=== PATIENT | female | born 1980 | race Caucasian/White ===

== ENCOUNTER 2022-01-26 11:54 | Emergency (ER) | payer BC, SELFPAY ==
--- NOTE | ~2022-01-26 | CT_ITS ---
EXAMINATION: CT cervical spine wo con DATE: 01/26/2022 13:15 INDICATION: Neck pain, head injury TECHNIQUE: Computed tomography (CT) of the cervical spine was performed without intravenous contrast. The dose-length product (DLP) was 602.92 mGy-cm. Automated exposure control and iterative reconstruc tion technique were employed. COMPARISON: None FINDINGS: There is straightening of the cervical spine which can be positional or due to muscular spa sm. There is no acute fracture, dislocation, or subluxation. The vertebral body heights, alignment, a nd intervertebral disc spaces are normal. The paravertebral soft tissues are unremarkable. The odonto id is intact. There is fibrous in the posterior C1 ring. IMPRESSION: 1. No acute osseous abnormality. Reviewed, dictated and finalized at location A.
--- NOTE | ~2022-01-26 | CT_ITS ---
EXAMINATION: CT brain wo con INDICATION: Head injury COMPARISON: None TECHNIQUE: Standard unenhanced head CT. The dose-length product (DLP) was 605.33 mGy-cm. The mA was a djusted according to patient size. Iterative reconstruction technique was employed. FINDINGS: There is no intracranial hemorrhage, acute infarction, or abnormal mass lesion. The ventric les are normal. There is no abnormal mass effect or midline shift. There is mild encephalomalacia in the left frontal lobe. Ventricular shunt enters through the left parietal lobe and ends with its tip in the right lateral ventricle. The basal cisterns are patent. The orbits are normal. The paranasal s inuses, mastoids and calvarium are normal. IMPRESSION: 1. No acute intracranial abnormality. Reviewed, dictated and finalized at location A.
[2022-01-26 12:20] VITALS: BP 144/83; PULSE 83; RESP 20; TEMP 36.6; O2SAT 98
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
[2022-01-26 14:32] VITALS: BP 149/91; PULSE 91; RESP 20; TEMP 36.6; O2SAT 97
== END 2022-01-26 14:34 | disposition home or self-care (01) ==
PROVIDERS: Emergency Provider Emergency Medicine; PCP Family Medicine
DX: S10.93XA Contusion of unspecified part of neck, initial encounter (principal); T74.91XA Unspecified adult maltreatment, confirmed, initial encounter; Y04.0XXA Assault by unarmed brawl or fight, initial encounter
CPT/HCPCS: 70450; 72125; 99284

== ENCOUNTER 2025-04-05 14:51 | Outpatient (RCR) | payer OTHER, SELFPAY ==
--- NOTE | 2025-04-05 16:58 | OPREHPOC ---
Outpatient Therapy Plan of Care This is a Multidisciplinary Plan of Care that may contain components documented by all disciplines (PT, OT, and ST.) PT Problem 1 PT Problem #1 Knowledge Deficit PT Goal 1 Goal / Goal Update The patient will be independent in a home exercise program. Target Visit 4 PT Problem 2 PT Problem #2 Impaired Balance PT Goal 1 Goal / Goal Update The patient will demonstrate 53/56 on the Osman Balance Scale indicating a low fall risk. Target Visit 8 PT Problem 3 PT Problem #3 Impaired Strength PT Goal 1 Goal / Goal Update The patient will demonstrate 5/5 right ankle strength. The patient will demonstrate 4/5 bilateral hip abduction and extension strength. Target Visit 8
--- NOTE | 2025-04-05 16:58 | PTOPEVAL1 ---
Assessment and note entered by Nicole Troncoso, PT Evaluation Information Assessment Status Evaluation Diagnosis Shunt Reconstruction Onset 03/28/25 Subjective Information Rosemary Gaytan reports that she had a headache on and took ibuprofen and went to sleep. She next remembers waking up in the ER at [place]. She reports her mother found her incoherent and they called an ambulance. She was transported to [place] . She had a MANAGER SECURITY shunt placed as a baby but they thought it was disconnected when she was 11 y/o. She reports the shunt must have still been working and malfunctioned so she had to have her MANAGER SECURITY shunt reconstructed on 03/28/25. She also was found to have a UTI while at the hospital. She was discharged on 03/30/25 and spent 2 nights at her dad 's and then went to her home. Her mom has been staying with her since she came home. She normally lives on her own in a single level home with 5 steps to enter from the front and 2 steps from the garage. She is using a handrail to navigate stairs. She denies feeling unbalanced or weakness. Her only c/o is a slight headache intermittently. She is using Tylenol for the headache because she can not take anti-inflammatories right now. She uses an ankle brace when she is working and walking. She works at [employer] and is off work for at least a month. She will follow up with the neurologist in a month. She is on a 5lb lifting restriction. Reported Pain Level Pain Score 0: Self Report Pain Score 0: Self Report Assessment PT Clinical Summary Rosemary Gaytan presents 8 days following MANAGER SECURITY shunt reconstruction. She is unable to drive and work currently. She objectively demonstrates decreased bilateral hip strength, decreased balance, and decreased right ankle strength. She will benefit from skilled PT to address these limitations. Plan of Care Interventions Neuro Re-education,Patient/Caregiver Education, Therapeutic Activities,Therapeutic Exercise PT Services Indicated Yes Treatment Frequency and 2 times a week for 8 visits Duration These treatments will address the objective and functional deficits as defined above. The patient will be advanced safely and appropriately in order for the patient to progress towards his/her prior level of function. Additional exercises will be introduced and as well as a comprehensive home exercise program upon discharge, if needed, ?to ensure carryover of functional gains achieved in the clinic. This treatment plan has been reviewed and agreement upon by the patient.
--- NOTE | 2025-04-12 17:02 | BUOTOPEVAL ---
Assessment and note entered by Pippa Sosa OT Evaluation Information Assessment Status Evaluation Assessment Status Evaluation Diagnosis Shunt malfunction, initial encounter ICD-10 Condition Codes (OT) Generalized muscle weakness M62.81 Onset March 26, 2025 Reported Pain Level Pain Score 0: Self Report Pain Score 0: Self Report Pain Score 0: Self Report Pain Score 0: Self Report Assessment OT Clinical Summary The patient is a 44 year old female who was referred to outpatient OT due to recent shunt malfunction. Patient previously was independent with all ADLs and IADLs with no issues with strength, ROM, fine motor coordination or cognition. 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. She is to be evaluated by PT this date, PT to address endurance and strength with the patient demonstrating good safety with ADLs and other daily tasks. She does not require skilled OT at this time, therapist has educated her on UE HEP to perform to maintain strength while recovering from surgery and will follow up with MD in April. Patient agrees with POC to discharge this date and perform UB HEP to address strength as needed. Plan of Care OT Services Indicated No These treatments will address the objective and functional deficits as defined above. The patient will be advanced safely and appropriately in order for the patient to progress towards his/her prior level of function. Additional exercises will be introduced and as well as a comprehensive home exercise program upon discharge, if needed, ?to ensure carryover of functional gains achieved in the clinic. This treatment plan has been reviewed and agreement upon by the patient.
--- NOTE | 2025-04-12 17:02 | OPREHPOC ---
Outpatient Therapy Plan of Care This is a Multidisciplinary Plan of Care that may contain components documented by all disciplines (PT, OT, and ST.) PT Problem 1 PT Problem #1 Knowledge Deficit PT Goal 1 Goal / Goal Update The patient will be independent in a home exercise program. Target Visit 4 PT Problem 2 PT Problem #2 Impaired Balance PT Goal 1 Goal / Goal Update The patient will demonstrate 53/56 on the Osman Balance Scale indicating a low fall risk. Target Visit 8 PT Problem 3 PT Problem #3 Impaired Strength PT Goal 1 Goal / Goal Update The patient will demonstrate 5/5 right ankle strength. The patient will demonstrate 4/5 bilateral hip abduction and extension strength. Target Visit 8 OT Problem 1 OT Problem #1 Knowledge Deficit OT Goal 1 Goal / Goal Update The patient will demonstrate 100% knowledge and return demonstration of UE HEP for completion at home to maintain strength as she recovers from surgery. GOAL MET; DISCONTINUED 04/05/2025 Target Visit 1 Progress Met
--- NOTE | 2025-04-27 13:08 | PCPTNOTE ---
Patient called & cancelled scheduled appointment this date due to unable to make it. -Nicole Troncoso, PT
--- NOTE | 2025-05-03 14:45 | OPREHPOC ---
Outpatient Therapy Plan of Care This is a Multidisciplinary Plan of Care that may contain components documented by all disciplines (PT, OT, and ST.) PT Problem 1 PT Problem #1 Knowledge Deficit PT Goal 1 Goal / Goal Update The patient will be independent in a home exercise program. Target Visit 4 Progress Met PT Problem 2 PT Problem #2 Impaired Balance PT Goal 1 Goal / Goal Update The patient will demonstrate 53/56 on the Osman Balance Scale indicating a low fall risk. Target Visit 8 Progress Met PT Problem 3 PT Problem #3 Impaired Strength PT Goal 1 Goal / Goal Update The patient will demonstrate 5/5 right ankle strength. The patient will demonstrate 4/5 bilateral hip abduction and extension strength. Target Visit 8 Progress Met OT Problem 1 OT Problem #1 Knowledge Deficit OT Goal 1 Goal / Goal Update The patient will demonstrate 100% knowledge and return demonstration of UE HEP for completion at home to maintain strength as she recovers from surgery. GOAL MET; DISCONTINUED 04/05/2025 Target Visit 1 Progress Met
--- NOTE | 2025-05-03 14:46 | PTOPDC ---
Assessment and note entered by Nicole Troncoso, PT Evaluation Information Assessment Status Discharge Diagnosis Shunt Reconstruction Onset 03/28/25 Subjective Information Rosemary Gaytan reports she went to her neurologist at [facility] last week for a follow up after her shunt reconstruction surgery. 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 She is noting improved confidence with her balance and no ankle pain. Reported Pain Level Pain Score 0: Self Report Assessment PT Clinical Summary Rosemary Gaytan has completed 8 skilled PT visits for balance and LE strengthening following a AMMUNITION STORAGE SUPERINTENDENT shunt reconstruction performed on 03/28/25. She is reporting her neurologist released her to return to driving and to work. She is feeling more confidence with her balance and she has not been having ankle pain. She demonstrates improved ankle and hip strength, improved balance, and improved gait. She is a low fall risk now per the Osman Balance Test. She has met all goals and will be discharged to an independent [facility]. Plan of Care PT Services Indicated No
== END 2025-07-04 23:59 | disposition home or self-care (01) ==
LOC: CHSOT 14:51
PROVIDERS: PCP Family Medicine
DX: T85.618 Breakdown (mechanical) of other specified internal prosthetic devices, implants and grafts (principal)
CPT/HCPCS: 97110; 97112; 97150; 97161; 97165; 97530; 97750

== ENCOUNTER 2025-06-06 12:34 | Outpatient (RCR) | payer OTHER, SELFPAY ==
--- NOTE | 2025-06-09 08:28 | OPREHPOC ---
Outpatient Therapy Plan of Care This is a Multidisciplinary Plan of Care that may contain components documented by all disciplines (PT, OT, and ST.) PT Problem 1 PT Problem #1 Knowledge Deficit PT Goal 1 Goal / Goal Update Independent and compliant with HEP. Target Visit 2 PT Problem 2 PT Problem #2 Impaired Strength PT Goal 1 Goal / Goal Update Pt to improve gross cervical mm strength to 4+/5. Pt to improve gross shoulder mm strength to 4+/5. Pt to improve bilat elbow flexion strength to 5/5. Target Visit 10 PT Problem 3 PT Problem #3 Pain PT Goal 1 Goal / Goal Update Pt to report no pain in the last 3 days. Target Visit 10 PT Problem 4 PT Problem #4 Impaired Functional Mobility PT Goal 1 Goal / Goal Update Pt to report being able to lift groceries without difficulty or modifying her activity at work due to L shoulder region pain. Target Visit 10
--- NOTE | 2025-06-09 08:29 | PTOPEVAL1 ---
Assessment and note entered by Clarisa Chairez, PT Evaluation Information Assessment Status Evaluation Other ICD-10 Condition Codes ( S46.812A PT) Onset 05/24/2025 Subjective Information Pt reports she went to sleep on May 24 and woke up the next morning and couldn't lift anything up with her L arm. She recently finished up therapy and went back to work on May 07, and she is currently still working despite this new shoulder region pain and she tries to not put too much weight on it. She reports she has told her doctor about this new pain and states that there may be a correlation with her recent shunt revision on 03/28. She states the doctor told her to monitor for dizziness when sitting or standing. Pt denies recent dizziness, nausea, and headaches. She reports her pain ranges from the front of her chest in the pectoral area and also on top of her shoulder in the upper trap area. She has currently been using hold/cold therapies as well as Icyhot and alternating Tylenol and Ibuprofen. Assessment PT Clinical Summary Mrs. Gaytan is a 44 yo female presenting to skilled PT evaluation for new onset of L shoulder region pain after sleeping. She demonstrates moderate cervical, shoulder and elbow mm strength deficits as well as L upper trapezius mm tightness and tenderness in this mm with active shoulder elevation. Pt's pain and strength deficits have impaired her ability to lift heavy loads at work. Pt will benefit from silled PT intervention to improve strength and reduce pain to be able to perform daily functional and work activities with less difficulty. Also, due to insidious onset after sleeping and vast pain area with recent shunt revision, advised pt to follow up with her neurologist to rule out any issues with the shunt. Plan of Care Interventions Hot Pack/Cold Pack,Manual Therapy,Neuro Re- education,Patient/Caregiver Education,Therapeutic Activities,Therapeutic Exercise,Self-Care/Home Management PT Services Indicated Yes Treatment Frequency and 2x/week for 10 visits Duration These treatments will address the objective and functional deficits as defined above. The patient will be advanced safely and appropriately in order for the patient to progress towards his/her prior level of function. Additional exercises will be introduced and as well as a comprehensive home exercise program upon discharge, if needed, ?to ensure carryover of functional gains achieved in the clinic. This treatment plan has been reviewed and agreement upon by the patient.
--- NOTE | 2025-06-16 14:15 | PTOPDC ---
Assessment and note entered by Clarisa Chairez, PT Evaluation Information Assessment Status Discharge - Pt Not Present Other ICD-10 Condition Codes ( S46.812A PT) Onset 05/24/2025 Subjective Information See below. Assessment PT Clinical Summary Pt called the clinic today and verbalized her shoulder/arm is feeling better and she would like to be discharged from therapy. Plan of Care PT Services Indicated No
== END 2025-06-06 20:00 | disposition home or self-care (01) ==
LOC: CHSPT 12:34
PROVIDERS: PCP Family Medicine; Visit Provider Family Medicine
DX: S46.812A Strain of other muscles, fascia and tendons at shoulder and upper arm level, left arm, initial encounter (principal)
CPT/HCPCS: 97110; 97140; 97161